=== PATIENT | female | born 1935 | race Caucasian/White ===

== ENCOUNTER → 2018-10-07 | Outpatient (CLI) | payer MEDICARE ==
--- NOTE | 2018-10-07 12:50 | RADIOLOGY REPORT (SQ) ---
EXAM DESCRIPTION: CAROTID DOPPLER COMPLETED DATE/TIME: 10/07/2018 12:05 pm REASON FOR STUDY: R09.89 R09.89 OTH SYMPTOMS AND SIGNS INVOLVING THE CIRC AND RESP SY COMPARISON: None. TECHNIQUE: Grayscale ultrasound, Doppler velocity and spectra, and color Doppler images acquired of the extra-cranial carotid and vertebral arteries. Images stored on PACS. LIMITATIONS: None. FINDINGS: RIGHT CAROTID CCA Velocities: Within normal limits. Right common carotid artery peak systolic velocity 0.67 m/sec ICA Velocities Peak systolic 1.6 m/s. End diastolic 0.25 m/s. Proximal ICA/CCA peak systolic ratio 1.8. There is calcific and noncalcific plaque at the right carotid bifurcation with 50 to 69% narrowing of the proximal right ICA by velocity criteria. This correlates with color flow imaging. LEFT CAROTID CCA Velocities: Within normal limits. Left common carotid artery peak systolic velocity 0.8 m/sec ICA Velocities Peak systolic 1.0 m/s. End diastolic 0.3 m/s. Proximal ICA/CCA peak systolic ratio 1.5. Calcific shadowing plaque at the origin of the left proximal internal carotid artery. Just distal to shadowing plaque, velocities suggest against flow significant stenosis VERTEBRAL ARTERIES: Antegrade flow. Normal waveforms. SUBCLAVIAN ARTERIES: Not evaluated OTHER: No other significant finding. IMPRESSION: Suspect 50 to 69% narrowing of the right proximal ICA at the carotid bifurcation Calcific shadowing plaque left proximal ICA. Velocities immediately distal to the plaque suggest no flow significant stenosis. Antegrade pulsatile vertebral artery flow bilaterally. Next COMMENT: Quality ID #[id number]: Velocity criteria are extrapolated from the diameter data as defined by t he Society of Radiologists in Ultrasound Consensus Conference. Radiology 2003: 229; 340-346. TECHNICAL DOCUMENTATION: JOB ID: [id number] [employer]- All Rights Reserved Reading location - IP/workstation name: [email or web address]-
--- NOTE | 2018-10-09 12:11 | XCELERA REPORT ---
[address] [address] Lower Extremity Arterial Evaluation Name: GALLO ACEVEDO Age: 83 yrs Gender: Female : 1935 Patient Status: Outpatient Patient Location: Study Date: 10/07/2018 10:14 AM Procedure: A color flow and duplex scan of the lower extremity arteries was performed on the right with velocity and waveform anaylsis. Reason For Study: R09.89 Ordering Physician: JOSE MEIER Performed By: Karie Khalil Measurements and Calculations Right Left COATER SLATE PSV 120.5 cm/sec Prox PFA PSV -212.1 cm/sec Prox SFA PSV -256.5 cm/sec Dist SFA PSV -32.7 cm/sec Prox Pop A PSV 24.8 cm/sec Mid HEAVY CLEANER PSV 11.5 cm/sec Mid Ana A PSV -12.6 cm/sec Arsalan Pedis PSV 28.3 25.8 cm/sec Right Side Arterial Evaluation Normal velocity and triphasic waveforms noted in the Common Femoral and Deep Femoral arteries, increased velocity in the Deep Femoral. Occluded Femoral artery with Monophasic reconstitution in the Popliteal with spectral broadening, low velocity to the infrageniculate vessel. Ankle Brachial index not obtained. Left Side Arterial Evaluation Biphasic low velocity signal in the Dorsalis Pedis sampling. Interpretation Summary Severe hemodynamically significant lesions in the right lower extremity only, on duplex imaging, at rest. : JOSE MEIER > Domo Valencia
== END ==
LOC: SP 09:58
PROVIDERS: ATTEND Family Medicine
DX: I70.211 Atherosclerosis of native arteries of extremities with intermittent claudication, right leg (principal); R09.89 Other specified symptoms and signs involving the circulatory and respiratory systems
CPT/HCPCS: 93880; 93926

== ENCOUNTER → 2020-03-21 | Outpatient (CLI) | payer MEDICARE ==
--- NOTE | 2020-03-21 10:38 | RADIOLOGY REPORT (SQ) ---
EXAM DESCRIPTION: BARIUM SWALLOW ESOPHAGUS IMAGES COMPLETED DATE/TIME: 03/21/2020 9:57 am REASON FOR STUDY: (R13.10)DYSPHAGIA, UNSPECIFIED R13.10 DYSPHAGIA, UNSPECIFIED COMPARISON: None. TECHNIQUE: Under fluoroscopic guidance, patient ingested effervescent granules followed by thick and thin barium. Fluoroscopic spot images and routine radiographic images acquired and stored on PACS. 12 MM BARIUM TABLET GIVEN: Yes. Tablet lodged at the GE junction for an extended period of time. LIMITATIONS: None. FLUOROSCOPY TIME: FLUORO TIME: 3.2 minutes. 14 images saved to PACS. FINDINGS: NEUROMUSCULAR COORDINATION OF SWALLOW: Normal. No aspiration. Cricopharyngeal hypertrophy . ESOPHAGEAL MOTILITY: Slow primary peristalsis with esophageal spasm seen in the distal half esophagus . ESOPHAGEAL MUCOSA: Normal mucosa without masses or ulceration. Significant narrowing of the distal e sophagus just above the GE junction which delayed passed 12 mm barium tablet throughout the exam. GASTRO-ESOPHAGEAL JUNCTION: Small sliding hiatal hernia with mild gastroesophageal reflux. Schatzki' s ring formation. NON-GI TRACT STRUCTURES: No significant finding. OTHER: No other significant finding. IMPRESSION: 1. 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 2. SMALL SLIDING HIATAL HERNIA WITH MILD GASTROESOPHAGEAL REFLUX. 3. DISTAL ESOPHAGEAL SPASM COMMENT: Quality ID [id number]: Final reports for procedures using fluoroscopy that document radiation exp osure indices, or exposure time and number of fluorographic images (if radiation exposure indices are not available) TECHNICAL DOCUMENTATION: JOB ID: [id number] [employer]- All Rights Reserved Reading location - IP/workstation name: [email or web address] [id number]
== END ==
LOC: RAD 09:00
PROVIDERS: ATTEND Family Medicine
DX: K22.2 Esophageal obstruction (principal); K44.9 Diaphragmatic hernia without obstruction or gangrene; K21.9 Gastro-esophageal reflux disease without esophagitis
CPT/HCPCS: 74220